=== PATIENT | female | born 1955 | race Two or more races ===

== ENCOUNTER 2024-01-28 13:45 | Emergency (ER) | payer BC, OTHER ==
[2024-01-28 16:13] VITALS: BP 144/61; PULSE 80; RESP 16; TEMP 97.6; O2SAT 96
[2024-01-28] MEDS: HYDROcodone-ACET 5/325MG TAB PO ONE (16:22)
[2024-01-28] MEDS ORDERED: ACET-1080 PO (16:28)
== END 2024-01-28 16:40 | disposition home or self-care (01) ==
LOC: ER 13:45
DX: M17.12 Unilateral primary osteoarthritis, left knee (principal); E11.9 Type 2 diabetes mellitus without complications; E78.5 Hyperlipidemia, unspecified; I10 Essential (primary) hypertension
CPT/HCPCS: 73562